=== PATIENT | male | born 2000 | race Caucasian/White ===

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

== ENCOUNTER 2021-01-17 21:14 | Emergency (ER) | payer MEDICAID ==
[~2021-01-17] VITALS: Ht 172.7 cm; Wt 69.8 kg
[~2021-01-17 21:14] MED LIST changes: +IBUP-1221 PO
[2021-01-17 21:31] VITALS: BP 146/74
--- NOTE | 2021-01-17 22:24 | NUR ---
TASK RN: PT. TO ROOM FROM LOBBY AT THIS TIME.
== END 2021-01-17 23:33 | disposition home or self-care (01) ==
LOC: ED 23:00
DX: S23.3XXA Sprain of ligaments of thoracic spine, initial encounter (principal); M25.511 Pain in right shoulder; M79.651 Pain in right thigh; F17.200 Nicotine dependence, unspecified, uncomplicated; V43.53XA Car driver injured in collision with pick-up truck in traffic accident, initial encounter; Y93.89 Activity, other specified; Y92.830 Public park as the place of occurrence of the external cause; Y99.8 Other external cause status
CPT/HCPCS: 99282